=== PATIENT | female | born 1945 | race Caucasian/White ===

== ENCOUNTER 2017-10-07 13:05 | Observation (INO) | payer MEDICARE, OTHER ==
[~2017-10-07] VITALS: Ht 152.4 cm; Wt 68.7 kg
[2017-10-07] VITALS (8 sets, daily range): BP systolic 134–171; BP diastolic 51–90; PULSE 71–88; TEMP 96.8–98.3
[~2017-10-07 13:05] MED LIST: CALCIUM1 CAP PO; CARDI-OMEGA1000 MG PO; COMBIRESP IH; FLEXERIL 1010 MG/TAB PO; GLUCOSAMINE PO; PREMARIN 0.60.625 M1 PO; PRESERVISION1 SGL PO; RT ADVAIR 228 DISKUS IH; ULTRAM 50MG TAB50 MG PO; VENTOLIN0.09 MG IH; VITAMIN C500 MG PO
[2017-10-07] MEDS ORDERED: PROAIR HFA0.09 MG/AC IH (13:24)
[2017-10-07] MEDS ORDERED: MEVACOR10 MG PO (13:25)
[2017-10-07] MEDS ORDERED: HYDRODIURIL50 MG PO (13:26)
[2017-10-07] MEDS ORDERED: KLOR-CON M2020 MEQ PO (13:27)
[2017-10-07] MEDS ORDERED: NEURONTIN100 MG/CAP PO (13:27)
[2017-10-07] MEDS ORDERED: NEXIUM 24HR20 M1 PO (13:28)
[2017-10-07 19:51] LABS: CALCIUM 9.4 mg/dL (8.4-10.2); CREATININE, serum 0.59 mg/dL (0.52-1.25); POTASSIUM 3.4 mmol/L (3.4-5.0)
[2017-10-07 20:02] LABS: BASO # 0.1 (0.0-0.2); BASO % 0.9 % (0.0-2.0); EOS # 0.4 (0.0-0.7); EOS % 5.4 % (0-4.0); GRAN % 52.8 % (42.2-75.2); HEMOGLOBIN 10.8 g/dl (12.5-16.0); LYMPH # 2.4 (1.2-3.4); LYMPH % 31.8 % (20.0-51.0); MEAN CELL VOLUME 90 fl (80.0-100.0); MEAN CORPUSCULAR HEMOGLOBIN 30 pg (27.0-31.0); MEAN CORPUSCULAR HGB CONC 33 g/dl (33.0-37.0); MEAN PLATELET VOLUME 9.1 fl (7.4-10.4); MONO # 0.7 (0.1-0.6); MONO % 8.8 % (1.7-9.3); PLATELET COUNT 364 K/mm3 (130-400); RED BLOOD COUNT 3.59 M/mm3 (4.10-5.30); REDCELL DISTRIBUTION WIDTH-CV 14.1 % (11.5-14.5)
[2017-10-07 20:04] LABS: HEMATOCRIT 32.3 % (37.0-47.0)
[2017-10-08 03:09] VITALS: BP 127/58; PULSE 90; TEMP 98.4
[2017-10-08 07:14] LABS: BASO # 0.1 (0.0-0.2); BASO % 1.1 % (0.0-2.0); EOS # 0.4 (0.0-0.7); GRAN # 3.5 (1.4-6.5); GRAN % 55.1 % (42.2-75.2); HEMOGLOBIN 10.8 g/dl (12.5-16.0); LYMPH # 1.8 (1.2-3.4); MEAN CELL VOLUME 89 fl (80.0-100.0); MEAN CORPUSCULAR HEMOGLOBIN 30 pg (27.0-31.0); MEAN CORPUSCULAR HGB CONC 34 g/dl (33.0-37.0); MONO # 0.6 (0.1-0.6); MONO % 9.5 % (1.7-9.3); PLATELET COUNT 360 K/mm3 (130-400); RED BLOOD COUNT 3.56 M/mm3 (4.10-5.30)
[2017-10-08 07:16] LABS: HEMATOCRIT 31.5 % (37.0-47.0)
[2017-10-08 07:26] LABS: CALCIUM 9.4 mg/dL (8.4-10.2); CREATININE, serum 0.66 mg/dL (0.52-1.25); POTASSIUM 3.6 mmol/L (3.4-5.0)
[2017-10-08 09:30] VITALS: BP 139/62; PULSE 94; TEMP 98
== END 2017-10-08 13:00 | disposition home or self-care (01) ==
LOC: SDCO 13:05 → SURG 17:30
PROVIDERS: Hospitalist
DX: D12.3 Benign neoplasm of transverse colon (principal); K21.9 Gastro-esophageal reflux disease without esophagitis; K59.00 Constipation, unspecified; I10 Essential (primary) hypertension; E78.5 Hyperlipidemia, unspecified; J45.909 Unspecified asthma, uncomplicated; Z79.899 Other long term (current) drug therapy; Z87.891 Personal history of nicotine dependence; Z86.010 Personal history of colon polyps; Z83.79 Family history of other diseases of the digestive system
CPT/HCPCS: G0378; J2405; J2704; J7030

== ENCOUNTER 2018-11-18 13:05 | Day surgery (SDC) | payer MEDICARE, OTHER ==
[~2018-11-18] VITALS: Ht 152.4 cm; Wt 69.0 kg
[~2018-11-18 13:05] MED LIST changes: +HYDRODIURIL50 MG PO; +KLOR-CON M2020 MEQ PO; +MEVACOR10 MG PO; +NEURONTIN100 MG/CAP PO; +NEXIUM 24HR20 M1 PO; +PROAIR HFA0.09 MG/AC IH
[2018-11-18 13:26] VITALS: BP 143/73; PULSE 72; TEMP 97.7
[2018-11-18] MEDS ORDERED: TOPROL XL 50MG50 MG PO (13:33)
[2018-11-18] MEDS ORDERED: ADVIL200 MG PO (13:34)
[2018-11-18] MEDS ORDERED: MOTRIN 200200 MG/TAB PO (13:35)
[2018-11-18] MEDS ORDERED: ASPIRIN 81M81 MG/TA2 PO (13:35)
[2018-11-18] MEDS ORDERED: MULTI VITAMINS1 TAB PO (13:36)
[2018-11-18] MEDS ORDERED: FLEXERIL 1010 MG/TAB PO (13:37)
[2018-11-18] MEDS ORDERED: ROBAXIN 75750 MG/TAB PO (13:38)
[2018-11-18 15:35] VITALS: BP 151/76; PULSE 100; TEMP 97.3
[2018-11-18 15:50] VITALS: BP 156/82; PULSE 76
[2018-11-18 16:05] VITALS: BP 132/64; PULSE 75
--- NOTE | 2018-11-18 16:15 | NUR ---
Pt returned to [facility] at 1535. Ambulated with SBA to recliner in bay. Legs elevated, warm blanket given and call light in reach. VSS-see flowsheet. Tolerated muffin and tea. Denied complaints. IV removed, pressure dressing applied. Discharge teaching completed, pt and verbalized understanding. Pt dressed and taken via wheelchair to private vehicle for dc home with driving.
== END 2018-11-18 16:15 | disposition home or self-care (01) ==
LOC: SDCO 13:05
DX: Z12.11 Encounter for screening for malignant neoplasm of colon (principal); Z86.010 Personal history of colon polyps; C18.5 Malignant neoplasm of splenic flexure; D12.3 Benign neoplasm of transverse colon; Z79.899 Other long term (current) drug therapy; E78.00 Pure hypercholesterolemia, unspecified; J45.909 Unspecified asthma, uncomplicated; R12 Heartburn; I10 Essential (primary) hypertension; Z90.710 Acquired absence of both cervix and uterus; Z87.891 Personal history of nicotine dependence; Z96.60 Presence of unspecified orthopedic joint implant; K59.00 Constipation, unspecified; Z85.828 Personal history of other malignant neoplasm of skin
CPT/HCPCS: J2704; J7030

== ENCOUNTER 2018-12-02 16:22 | Inpatient (IN) | payer MEDICARE, OTHER ==
[~2018-12-02] VITALS: Ht 152.4 cm; Wt 70.0 kg
[~2018-12-02 16:22] MED LIST changes: +ADVIL200 MG PO; +ASPIRIN 81M81 MG/TA2 PO; +MOTRIN 200200 MG/TAB PO; +MULTI VITAMINS1 TAB PO; +ROBAXIN 75750 MG/TAB PO; +TOPROL XL 50MG50 MG PO
[2018-12-14] VITALS (11 sets, daily range): BP systolic 103–140; BP diastolic 46–73; PULSE 70–107; TEMP 97.8–97.9
--- NOTE | 2018-12-14 18:35 | NUR ---
Patient has done well throughout the day, sitting up in recliner for supper. x1 assist with steady gait. Incision sites x5 with edges well approximated. Requested pain medication once during shift and has denied pain since. Tolerating liquids without difficulty. Denies further needs at this time.
--- NOTE | 2018-12-14 21:00 | NUR ---
Patient ambulates around the surgical unit with supervision, gait steady. Has voided x2 without problem. IV site to left wrist, SL'd, patient taking oral fluids well. On scheduled pain management.
[2018-12-15] VITALS (7 sets, daily range): BP systolic 103–122; BP diastolic 42–67; PULSE 77–109; TEMP 97.5–98.9
--- NOTE | 2018-12-15 05:45 | NUR ---
Patient awake, takes AM Protonix and dose of ES Tylenol for abdominal discomfort. Voids 800cc of dark yellow urine at this time.
[2018-12-15 07:08] LABS: HEMOGLOBIN 10.9 g/dl (12.5-16.0)
[2018-12-15 07:17] LABS: HEMATOCRIT 31.6 % (37.0-47.0)
[2018-12-15 07:32] LABS: CREATININE, serum 0.82 (0.52-1.25); MAGNESIUM 1.8 mg/dL (1.6-2.3); PHOSPHOROUS 2.5 mg/dL (2.5-4.5); POTASSIUM 3.5 mmol/L (3.4-5.0)
--- NOTE | 2018-12-15 08:00 | NUR ---
UPON ENTRY TO THE ROOM THE PATIENT IS SITTING UP IN BED. PATIENT IS A&OX4. VSS. BOWEL SOUNDS HYPOACTIVE ALL FOUR QUADRANTS. ABDOMEN IS DISTENDED BUT SOFT UPON PALPATION. ABDOMINAL LAP SITES X5 CLINICAL DATA MANAGER WITH EDGES WELL APPROXIMATED. PATIENT TOLERATING DIET WITHOUT ANY COMPLAINTS OF N/V. PATIENT STATES THAT HER HANDS ARE SWOLLEN TODAY. POSITIVE PEDAL PULSES EQUAL BILATERALLY. LEF WRIST TO INT. CALL LIGHT WITHIN REACH. PATIENT DENIES ANY NEEDS AT THIS TIME.
--- NOTE | 2018-12-15 09:19 | NUR ---
Metoprolol and HCTZ held per primary nurse, DELLA Sal due to low blood pressure.
--- NOTE | 2018-12-15 10:12 | NUR ---
Initial viist; Patient thanked District Fire Chief for looking in on her, offering God's blessings and to keep her in District Fire Chief's prayers.
--- NOTE | 2018-12-15 10:37 | NUR ---
TWIN met with the patient to discuss a discharge plan. The patient lives in [place] with her Rakesh. The patient has a cane a walker but does not use them and reports independence with ADLs. The patient's PCP is Dr. Leal and patient receives medication from [facility] in with no difficulties. The patient does not have advanced directives in the EMR and was not interested in a DPOA-HC form. The patient plans to return home upon discharge with Rakesh providing transportation. There are no additional needs at this time.
--- NOTE | 2018-12-15 10:51 | NUR ---
Blood pressure recheck 115/54, pulse 113. Metoprolol given
--- NOTE | 2018-12-15 13:39 | NUR ---
Medicated with Tramadol for right abdominal pain of 6 on a scale of 0-10. Patient resting in bed at this time. Report given to primary nurse, DELLA Sal.
--- NOTE | 2018-12-15 15:20 | NUR ---
PATIENT AMBULATED >200 FE[address] IN HALLWAY WITH THIS NURSE. PATIENTS GAIT STEADY. PATIENT TOLERATED WELL. PATIENT ASSISTED BACK TO BED. PATIENT DENIES ANY NEEDS AT THIS TIME.
--- NOTE | 2018-12-15 19:20 | NUR ---
REPORT GIVEN TO DELLA MARTIN.
--- NOTE | 2018-12-15 20:37 | NUR ---
Patient takes HS meds including Tramadol 100mg po per her request for pain 5/10. Is alert and oriented x4. SL to left wrist without redness or swelling. Abdomen with 5 robotic sites, glued and mildly bruised. Up independently in room.
--- NOTE | 2018-12-16 01:30 | NUR ---
Patient sleeping, ES Tylenol held at this time.
[2018-12-16 04:00] VITALS: BP 110/48; PULSE 99; TEMP 97.7
--- NOTE | 2018-12-16 06:00 | NUR ---
Medicated with AM meds and Tramadol for rt abdominal pain 07/01. No stools this shift.
[2018-12-16 06:59] VITALS: BP 109/68; PULSE 70; TEMP 97.5
[2018-12-16 07:13] LABS: HEMOGLOBIN 10.5 g/dl (12.5-16.0)
[2018-12-16 07:25] LABS: HEMATOCRIT 31.1 % (37.0-47.0)
[2018-12-16 12:00] VITALS: BP 137/53; PULSE 87; TEMP 97.5
--- NOTE | 2018-12-16 13:39 | NUR ---
Patient resting in bed at this time. Cold pack given for right abdominal discomfort. Report given to primary nurse, DELLA Zepeda.
[2018-12-16 15:28] VITALS: BP 103/74; PULSE 73; TEMP 98
--- NOTE | 2018-12-16 18:30 | NUR ---
Patient has been doing well today. Paing has been better this afternoon. She has been moving around her room without problems. Encouraged her to walk in the hallways more. She is tolerating diet well. She is planning to discharge tomorrow. No other changes at this time. Call light within reach.
--- NOTE | 2018-12-16 20:00 | NUR ---
Report received. Assumed care for night clerk auditor. Assessment complete. VS stable. Denies nausea/shortness of breath. States she has passed some flatus earlier today and has been belching this evening. Did have a bowel movement on day shift. Tolerating PO. Voiding without difficulty. Robotic lap sites x5-edges well approximated-no drainage noted-bruising present. Rating pain 3/10-right upper quadrant-described as ache. Denies need for pain medication-scheduled tylenol given. Encouraged IS use and ambulation. Has been up in room today. Denies needs. Call light in reach. Bed in low position wheels locked. Will monitor.
[2018-12-16 20:37] VITALS: BP 101/68; PULSE 89; TEMP 97.9
--- NOTE | 2018-12-16 20:45 | NUR ---
Called to nurses station due to increased pain level. Rating pain 6/10-right upper/lower quadrant described as throbbing. Tramadol 100mg given per dr order. Will monitor.
[2018-12-17 00:10] VITALS: BP 122/54; PULSE 72; TEMP 98
[2018-12-17 04:04] VITALS: BP 124/53; PULSE 71; TEMP 97.7
[2018-12-17 07:49] VITALS: BP 132/68; PULSE 68; TEMP 98.5
[2018-12-17] MEDS ORDERED: ULTRAM 50MG TAB50 MG PO (10:57)
[2018-12-17 11:53] VITALS: BP 121/55; PULSE 77; TEMP 98
--- NOTE | 2018-12-17 13:15 | NUR ---
Patient is discharging home. Discharge instructions discussed with patient. NO questions verbalized. INT discontinued. She knows she has to call for a follow up appointment on Wednesday. Copies of discharge instructions sent with patient. She know she has a script for tramadol to get filled at the pharmacy. All belongings packed up and sent with patient. Patient walked out via wheel chair by Ingrid MARTINEZ.
== END 2018-12-17 13:15 | disposition home or self-care (01) | DRG 331 ==
LOC: INPTSU 12-14 05:41 → SURG 12-14 07:30
PROVIDERS: Student in an Organized Health Care Education/Training Program; ADMIT Surgery
PROC: 0DBM4ZZ Excision of Descending Colon, Percutaneous Endoscopic Approach (ICD-10-PCS; principal; 2018-12-14 07:30)
PROC: 0UT14ZZ Resection of Left Ovary, Percutaneous Endoscopic Approach (ICD-10-PCS; 2018-12-14 07:30)
DX: C18.6 Malignant neoplasm of descending colon (principal); J45.909 Unspecified asthma, uncomplicated; I10 Essential (primary) hypertension; E78.00 Pure hypercholesterolemia, unspecified; N83.202 Unspecified ovarian cyst, left side; D64.9 Anemia, unspecified
CPT/HCPCS: A4314; A9284; J0690; J1100; J1650; J1885; J2250; J2405; J2704; J3010; J7120

== ENCOUNTER 2019-01-12 09:13 | Day surgery (SDC) | payer MEDICARE, OTHER ==
[~2019-01-12] VITALS: Ht 152.4 cm; Wt 69.8 kg
[2019-01-12 10:01] VITALS: BP 119/68; PULSE 78; TEMP 98
[2019-01-12 12:00] VITALS: BP 135/69; PULSE 99; TEMP 97.8
--- NOTE | 2019-01-12 12:00 | NUR ---
Patient arrives to [facility] via cart, accompanied by HEALTHCARE ACCOUNT MANAGER Julian and ALVARO Faulkner. Patient is drowsy, but easily aroused to voice and oriented. Bedside report received. COLLECTION ADVISOR reports that patient's HR has been tachycardic and himself and Dr. Chung are aware and OK with that. Monitoring applied - VSS and WNL on room air. Patient denies pain or nausea. Her surgical site is clean, dry, intact. Call light in reach. Will continue to monitor.
[2019-01-12 12:15] VITALS: BP 121/61; PULSE 90
--- NOTE | 2019-01-12 12:15 | NUR ---
Patient is resting comfortably in room. Operative site remains clean, dry, intact. She denies pain or nausea. Offered and receives juice and a muffin to eat. Called and left a voicemail with her that patient is done with surgery and recovering. VSS and WNL on room air.
[2019-01-12 12:30] VITALS: BP 108/75; PULSE 75
[2019-01-12 12:45] VITALS: BP 118/60; PULSE 91
--- NOTE | 2019-01-12 12:45 | NUR ---
Patient tolerating PO well. Denies pain, nausea, or need.
[2019-01-12 13:00] VITALS: BP 121/56; PULSE 99
--- NOTE | 2019-01-12 13:00 | NUR ---
VSS and WNL on room air. Denies pain or nausea. Patient has met discharge criteria. Waiting on spouse to return for ride home.
--- NOTE | 2019-01-12 13:25 | NUR ---
Patient's has returned for discharge. Discharge instructions discussed, denies any questions, and verbalizes understanding. PIV removed with catheter intact and hemostasis achieved. Changing to clothing independently.
--- NOTE | 2019-01-12 13:49 | NUR ---
Patient escorted to exit via wheelchair. Discharged to home with ride in private vehicle at 1349.
== END 2019-01-12 13:49 | disposition home or self-care (01) ==
LOC: SDCO 09:13
DX: C18.6 Malignant neoplasm of descending colon (principal); J45.909 Unspecified asthma, uncomplicated; E78.00 Pure hypercholesterolemia, unspecified; I10 Essential (primary) hypertension; K21.9 Gastro-esophageal reflux disease without esophagitis; Z90.49 Acquired absence of other specified parts of digestive tract; Z79.82 Long term (current) use of aspirin; Z90.710 Acquired absence of both cervix and uterus; Z80.3 Family history of malignant neoplasm of breast; Z83.79 Family history of other diseases of the digestive system; Z87.891 Personal history of nicotine dependence
CPT/HCPCS: C1788; J0690; J1644; J2405; J2704; J3010; J7120; Q9967

== ENCOUNTER 2021-06-06 15:01 | Inpatient (IN) | payer MEDICARE, OTHER ==
[~2021-06-06] VITALS: Ht 152.4 cm; Wt 81.1 kg
[~2021-06-06 15:01] MED LIST changes: +ONE-A-DAY ESSE1 EACH PO; +PRINZIDE 12.5 M1 TAB PO; +RITALIN 5MG5 MG/TAB PO; +RT ADVAIR 128 DISKUS IH
[2021-06-06 15:37] LABS: HEMOGLOBIN 10.8 g/dl (12.5-16.0); MEAN CELL VOLUME 95 fl (80.0-100.0); MEAN CORPUSCULAR HEMOGLOBIN 34 pg (27-31); MEAN CORPUSCULAR HGB CONC 35 g/dl (33.0-37.0); MEAN PLATELET VOLUME 10.4 fl (7.4-10.4); PLATELET COUNT 118 K/mm3 (130-400); RED BLOOD COUNT 3.22 M/mm3 (4.10-5.30); REDCELL DISTRIBUTION WIDTH-CV 12.7 % (11.5-14.5)
[2021-06-06 15:41] LABS: HEMATOCRIT 30.7 % (37.0-47.0)
[2021-06-06 15:57] LABS: ALBUMIN 3.4 gm/dL (3.4-4.8); BILIRUBIN,TOTAL 0.3 mg/dL (0.2-1.2); C-REACTIVE PROTEIN 28.24 mg/dL (0.00-0.50); CREATININE, serum 1.73 mg/dL (0.57-1.11); POTASSIUM 4.3 mmol/L (3.5-4.5); TOTAL PROTEIN 6.7 gm/dL (6.2-8.1)
[2021-06-06 16:02] LABS: COLLECTION METHOD CLEAN CATCH
[2021-06-06 16:03] LABS: BAND 4 % (0-10); LYMPHOCYTE 6 % (20.0-51.0); NEUTROPHILS 79 % (42.0-75.2)
[2021-06-06 16:04] LABS: PLATELET ESTIMATE DECREASED (NORMAL)
[2021-06-06] MEDS ORDERED: LANOXIN 0.120.125 MG PO (16:08)
[2021-06-06] MEDS ORDERED: CARDIZEM 30MG T30 MG PO (16:09)
[2021-06-06 16:34] LABS: BUDDING YEAST Present (NOT PRESENT); MUCOUS Present (NOT PRESENT); PH 5 (5-8); SQUAMOUS EPITHELIAL 0-2 /hpf (0-10); URINE APPEARANCE Cloudy (CLEAR/HAZY); URINE BACTERIA Rare /hpf (NONE SEEN); URINE BILIRUBIN Negative (NEGATIVE); URINE BLOOD Negative (NEGATIVE); URINE COLOR Yellow (YELLOW); URINE GLUCOSE Negative (NEGATIVE); URINE KETONE Negative (NEGATIVE); URINE LEUKOCYTE ESTERASE 3+ (NEGATIVE); URINE NITRATE Positive (NEGATIVE); URINE PROTEIN(semi-quant) 2+ (NEGATIVE); URINE UROBILINOGEN Negative (NEGATIVE)
[2021-06-06 20:37] LABS: PARTIAL THROMBOPLASTIN TIME 28.9 SECONDS (26.0-37.0)
[2021-06-06 21:03] VITALS: BP 127/50; PULSE 93; TEMP 98.4
--- NOTE | 2021-06-06 23:55 | NUR ---
ADMIT TO FLOOR PER W/C W AFIB, RVR AND ABD PAIN. PT WAS SENT FROM PCP OFFICE W CONCERN OF GALLSTONES. PT DENIES CHEST PAIN YET IS DIZZY AT TIMES. SLIGHTLY CONFUSED UPON ADMIT. SPOUSE CALLED TO GIVE UPDATE ON POC. HEP GTT/BOLUS PER ORDER INITATED. HEP XA AT 0320. IV MAG, IV FLUIDS AND PM MEDS GIVEN. PT BED ALARM SET AND CALL LIGHT WI REACH. ASSESMENT OBTAINED. UNSURE OF MED LIST, RADHA AWARE. PT SPOUSE IS TO BRING UPDATED LIST THIS AM. VISITING HOURS REVIEWED W FELIX, SPOUSE.
[2021-06-07] VITALS (7 sets, daily range): BP systolic 117–145; BP diastolic 51–71; PULSE 72–109; TEMP 98–100
[2021-06-07 04:46] LABS: HEMOGLOBIN 10.6 g/dl (12.5-16.0); MEAN CORPUSCULAR HEMOGLOBIN 34 pg (27-31); MEAN CORPUSCULAR HGB CONC 34 g/dl (33.0-37.0); MEAN PLATELET VOLUME 10.4 fl (7.4-10.4); RED BLOOD COUNT 3.13 M/mm3 (4.10-5.30); REDCELL DISTRIBUTION WIDTH-CV 13.3 % (11.5-14.5)
[2021-06-07 04:49] LABS: HEMATOCRIT 31.4 % (37.0-47.0); MEAN CELL VOLUME 100 fl (80.0-100.0)
--- NOTE | 2021-06-07 04:49 | NUR ---
PT IS A VERY HARD STICK. WOOD HEEL BACK LINER UNABLE TO GET BLOOD. DR CORBETT STARTS LINE TO RT AC AND DRAWS LABS SENT FOR AM AND HEP XA. PT SEEMS MORE CONFUSED AT THIS TIME. BED ALARM ON.
[2021-06-07 04:50] LABS: PLATELET COUNT 288 K/mm3 (130-400)
[2021-06-07 04:54] LABS: CALCIUM 9.5 mg/dL (8.4-10.2); CREATININE, serum 1.71 mg/dL (0.57-1.11); POTASSIUM 4.4 mmol/L (3.5-4.5)
[2021-06-07 05:11] LABS: BAND 11 % (0-10); LYMPHOCYTE 7 % (20.0-51.0); NEUTROPHILS 79 % (42.0-75.2)
[2021-06-07 05:13] LABS: TOXIC GRANULATION PRESENT
--- NOTE | 2021-06-07 05:29 | NUR ---
HEP XA 0.42- NO CHANGE IN RATE. PT RUNNING FEVER, WILL GIVE TYL.
--- NOTE | 2021-06-07 15:29 | NUR ---
SW met with patient to complete intake. Patient states that she lives in [facility] with her Rakesh [phone]. Patient states that she does not utilize any DME and is independent with ADL's patient provides that she does not utilize any home health services. PCP is Dr. Farfan, and pharmacy is [facility]. Patient states that her daughter Hilda is a contact as well [phone]. Patient states that she does not have a DPOA/HC. Patient states that she plans to return to her home upon DC. SW will continue to follow. DC plan: home
--- NOTE | 2021-06-07 20:41 | NUR ---
PT REMAINS IN AFIB - DENIES SOA, CHEST PAIN OR DIZZY. IS VERY [place] BUT MUCH MORE ORIENTATED TONIGHT. HEPARIN GTT REMAINS AT 11.5ML/HR. NS AT 100ML/HR. PM MEDS GIVEN. IS THERAPUTIC W HEP XA, LAB IN AM. CALL LIGHT WI REACH.
[2021-06-08 00:04] VITALS: BP 128/66; PULSE 80; TEMP 99.6
[2021-06-08 04:34] VITALS: BP 153/74; PULSE 111; TEMP 101.3
[2021-06-08 07:16] LABS: MEAN CELL VOLUME 97 fl (80.0-100.0); MEAN CORPUSCULAR HGB CONC 34 g/dl (33.0-37.0); MEAN PLATELET VOLUME 10.6 fl (7.4-10.4); PLATELET COUNT 239 K/mm3 (130-400); RED BLOOD COUNT 2.73 M/mm3 (4.10-5.30); REDCELL DISTRIBUTION WIDTH-CV 13.3 % (11.5-14.5)
[2021-06-08 07:22] LABS: HEMATOCRIT 26.5 % (37.0-47.0); MEAN CORPUSCULAR HEMOGLOBIN 33 pg (27-31)
[2021-06-08 07:23] VITALS: BP 126/64; PULSE 64; TEMP 98.4
[2021-06-08 07:43] LABS: CALCIUM 9.1 mg/dL (8.4-10.2); CREATININE, serum 1.45 mg/dL (0.57-1.11); POTASSIUM 3.2 mmol/L (3.5-4.5)
[2021-06-08 08:34] LABS: BAND 8 % (0-10); LYMPHOCYTE 9 % (20.0-51.0); NEUTROPHILS 76 % (42.0-75.2); PLATELET ESTIMATE NORMAL (NORMAL)
[2021-06-08 11:25] VITALS: BP 113/61; PULSE 99; TEMP 98.5
[2021-06-08 15:19] VITALS: BP 107/54; PULSE 102; TEMP 98.7
--- NOTE | 2021-06-08 18:04 | NUR ---
PATIENT REPORTED A HEADACHE TODAY. NEW ORDER FOR NORCO. PATIENT REPORTED HEADACHE RELIEF. HEPARIN DRIP INFUSING, NEXT HEP XA ORDERED. NO OTHER ISSUES NOTED OR REPORTED.
--- NOTE | 2021-06-08 20:02 | NUR ---
HEPARIN GTT RUNNING AT 13.5 ML/HR. NEXT HEP XA- 2130. PT DENIES CHEST PAIN , DIZZY OR LIGHTHEADED. SANCHEZ RESOLVED BY NORCO. PM MEDS GIVEN. POC DISCUSSED. CALL LIGHT WI REACH. NEEDS MET.
[2021-06-08 20:18] VITALS: BP 131/67; PULSE 101; TEMP 98.7
[2021-06-09] VITALS (8 sets, daily range): BP systolic 112–146; BP diastolic 57–81; PULSE 86–117; TEMP 98.1–100.1
[2021-06-09 03:26] LABS: BASO # 0.1 K/mm3 (0.0-0.2); BASO % 0.6 % (0.0-2.0); EOS # 0.1 K/mm3 (0.0-0.7); EOS % 1.3 % (0.0-4.0); LYMPH # 1.6 K/mm3 (1.2-3.4); LYMPH % 14.9 % (20.0-51.0); MEAN CELL VOLUME 96 fl (80.0-100.0); MEAN CORPUSCULAR HGB CONC 36 g/dl (33.0-37.0); MEAN PLATELET VOLUME 10.2 fl (7.4-10.4); MONO # 1.1 K/mm3 (0.1-0.6); MONO % 9.6 % (1.7-9.3); PLATELET COUNT 244 K/mm3 (130-400); REDCELL DISTRIBUTION WIDTH-CV 13.6 % (11.5-14.5)
[2021-06-09 03:29] LABS: HEMATOCRIT 25.9 % (37.0-47.0); HEMOGLOBIN 9.2 g/dl (12.5-16.0); MEAN CORPUSCULAR HEMOGLOBIN 34 pg (27-31)
--- NOTE | 2021-06-09 03:45 | NUR ---
HEP XA 0.30- INCREASED PER PROTOCOL RATE NOW 14.5ML/HR. VERIFIED BY DELLA TYLER.
[2021-06-09 04:03] LABS: ALBUMIN 2.3 gm/dL (3.4-4.8); CALCIUM 9.7 mg/dL (8.4-10.2); CREATININE, serum 1.38 mg/dL (0.57-1.11); MAGNESIUM 1.9 mg/dL (1.6-2.6); PHOSPHOROUS 3.2 mg/dL (2.3-4.7); POTASSIUM 3.7 mmol/L (3.5-4.5)
--- NOTE | 2021-06-09 04:21 | NUR ---
REPORT CRITICAL CARBON DIOXIDE OF 13 TO NICHOLAS GARCIA. SHE WILL LOOK AT AM LABS.
--- NOTE | 2021-06-09 05:23 | NUR ---
AUDIABLE WHEEZING WHEN UP TO BR. PT IS DRINKING ALOT OF FLUIDS. RADHA CALLED AND WILL DC FLUIDS.
--- NOTE | 2021-06-09 10:01 | NUR ---
Initial visit; Patient thanked Dramatic Teacher for looking in on her and offering God's blessings and keeping her in Dramatic Teacher's prayers.
--- NOTE | 2021-06-09 10:41 | NUR ---
Patient sitting on edge of bed upon entering the room. appeared SOB, this RN asked how the patient felt and she stated more short of breath than normal. O2 sats were 88% on RA. Patient placed on 2L of O2 via NC. Dr. Rice and Arabella PETERSON, notified of patients new need for O2. Also notified that patient's HR was remaining in the 120s-130s while resting. Morning medications administered as ordered. Patient instructed to call whenever she needs to use the restroom, and that bedside commode would be used since patient was SOB and tachycardic. Hep XA drawn at 0930, came back and needed to be increased 100 units per protocol. Changes made w/ Zuleima - RN.
--- NOTE | 2021-06-09 13:15 | NUR ---
Patient experiencing hallucinations as reported by daughter. This RN went to assess, patient stated she saw a man w/ red hair standing at the door. When asked orientation questions, patient stated location and name correctly, but stated the year was 1974. Patient remains SOB and tachycardic. Cardiology and hospitalist aware. Hospitalist notified of hallucinations. Ordered 25mg seroquel to be given.
[2021-06-10 04:37] VITALS: BP 115/71; PULSE 84; TEMP 97.5
--- NOTE | 2021-06-10 05:28 | NUR ---
PATIENT CALM AND COOPERATIVE THROUGHOUT THE NIGHT. NO NEW ISSUES NOTED OR REPORTED BY PATIENT. PRN TYLENOL ADMINISTERED X'S 1 FOR PATIENT REPORTING A HEADACHE. PATIENT REPORTED PAIN RELIEF.
[2021-06-10 06:21] LABS: MEAN CELL VOLUME 96 fl (80.0-100.0); MEAN CORPUSCULAR HGB CONC 34 g/dl (33.0-37.0); MEAN PLATELET VOLUME 10.5 fl (7.4-10.4); PLATELET COUNT 247 K/mm3 (130-400); RED BLOOD COUNT 2.53 M/mm3 (4.10-5.30); REDCELL DISTRIBUTION WIDTH-CV 13.7 % (11.5-14.5)
[2021-06-10 06:22] LABS: HEMATOCRIT 24.4 % (37.0-47.0); HEMOGLOBIN 8.3 g/dl (12.5-16.0); MEAN CORPUSCULAR HEMOGLOBIN 33 pg (27-31)
[2021-06-10 06:40] LABS: CALCIUM 9.8 mg/dL (8.4-10.2); CREATININE, serum 1.16 mg/dL (0.57-1.11); MAGNESIUM 1.8 mg/dL (1.6-2.6); PHOSPHOROUS 3.9 mg/dL (2.3-4.7); POTASSIUM 3.6 mmol/L (3.5-4.5)
[2021-06-10 07:01] LABS: BAND 7 % (0-10); BASOPHIL 2 % (0-2); EOSINOPHIL 2 % (0-4); LYMPHOCYTE 18 % (20.0-51.0); NEUTROPHILS 62 % (42.0-75.2)
[2021-06-10 07:02] LABS: PLATELET ESTIMATE NORMAL (NORMAL)
[2021-06-10 07:03] LABS: TARGET CELLS 1+
[2021-06-10 08:54] VITALS: BP 120/64; PULSE 70; TEMP 98
--- NOTE | 2021-06-10 09:34 | NUR ---
Patient receiving a breathing treatment upon entering the room. Patient denies any concerns this morning. Patient appears to be doing better than yesterday, not SOB.
[2021-06-10 12:05] VITALS: BP 118/60; PULSE 74; TEMP 97.8
[2021-06-10 16:00] VITALS: BP 115/65; PULSE 78; TEMP 97.8
--- NOTE | 2021-06-10 16:32 | NUR ---
Patient walked w/ PT today and did well. Family at bedside and update was given. Patient continues to deny any concerns.
--- NOTE | 2021-06-10 18:01 | NUR ---
Patient stated that she felt bloated and hasn't had a BM in 3days. [place] called, santo requested, order placed by [place].
[2021-06-10 20:53] VITALS: BP 156/61; PULSE 94; TEMP 99.4
[2021-06-11 00:23] VITALS: BP 132/60; PULSE 78; TEMP 98.6
[2021-06-11 05:07] VITALS: BP 142/69; PULSE 81; TEMP 98.2
--- NOTE | 2021-06-11 05:49 | NUR ---
ASSESSMENT COMPLETE FOR THIS SHIFT. PT RESTING IN BED. PT COMPLAINED OF KNEE PAIN AND HAD A LOW GRADE FEVER. PT GIVEN NORCO FOR KNEE PAIN AND LOW GRADE FEVER. NORCO WAS EFFECTIVE FOR REDUCING PAIN AND FEVER. PT DENIED SOB, N,V,D OR DIZZINESS. PHOEBE FISHMAN REPORTED PT HAD SEVERAL EPISODES OF HER HR GOING INTO THE 130s TO 140s. HOSPITALIST CALLED. CARDIZEM ORDERED AND GIVEN; EKG ORDERED AND DONE. CARDIZEM SEEMED TO HELP MANAGE PT'S HR. PT EXPRESSED NO OTHER NEEDS AT THIS TIME. CALL LIGHT WITHIN REACH.
[2021-06-11 06:54] LABS: MEAN CELL VOLUME 96 fl (80.0-100.0); MEAN CORPUSCULAR HGB CONC 35 g/dl (33.0-37.0); MEAN PLATELET VOLUME 10.5 fl (7.4-10.4); PLATELET COUNT 318 K/mm3 (130-400); RED BLOOD COUNT 2.68 M/mm3 (4.10-5.30); REDCELL DISTRIBUTION WIDTH-CV 13.8 % (11.5-14.5)
[2021-06-11 06:57] LABS: HEMATOCRIT 25.6 % (37.0-47.0); MEAN CORPUSCULAR HEMOGLOBIN 34 pg (27-31)
[2021-06-11 07:11] LABS: ALBUMIN 2.2 gm/dL (3.4-4.8); CREATININE, serum 1.01 mg/dL (0.57-1.11); MAGNESIUM 1.9 mg/dL (1.6-2.6); PHOSPHOROUS 3.9 mg/dL (2.3-4.7); POTASSIUM 4.1 mmol/L (3.5-4.5)
[2021-06-11 07:30] LABS: BAND 2 % (0-10); EOSINOPHIL 6 % (0-4); LYMPHOCYTE 39 % (20.0-51.0); NEUTROPHILS 41 % (42.0-75.2); PLATELET ESTIMATE NORMAL (NORMAL)
[2021-06-11 07:31] LABS: TARGET CELLS 1+
[2021-06-11 08:10] VITALS: BP 137/81; PULSE 70; TEMP 97.8
--- NOTE | 2021-06-11 08:30 | NUR ---
Assessment completed, alert/oriented, heart remains irregular/ tachy 120's and notifed hospitalist, other vital signs stable, denies any pain or discomfort, denies any reps.difficulty or chest discomfort, morning meds given and will continue to monitor heaert rate/rythm, she is sitting up eating breakfast and denies other needs at this time
[2021-06-11] MEDS ORDERED: ELIQUIS 5MG PO (09:22)
--- NOTE | 2021-06-11 10:30 | NUR ---
distillery worker general met with patient to discuss going home with HH services. Patient's daughter Cherry present at bedside. Patient is presented with the [email or web address] list of angcies that service the [facility]. Patient chose [facility]. Patient presented with the [facility].. Education provided to the patient and patient verbalized her understanding. Patient verbalized her agreement with the discharge plan for today. Signed original placed in chart and copy provided back to the patient.
[2021-06-11 12:23] VITALS: BP 138/85; PULSE 89; TEMP 98.5
--- NOTE | 2021-06-11 13:38 | NUR ---
Social Work student faxed a home health referral to Ritika at [facility].
[2021-06-11 16:25] VITALS: BP 111/56; PULSE 105; TEMP 100.5
[2021-06-11 20:39] VITALS: BP 150/69; PULSE 68; TEMP 99.6
[2021-06-12] VITALS (11 sets, daily range): BP systolic 97–145; BP diastolic 55–92; PULSE 72–126; TEMP 92–98.9
--- NOTE | 2021-06-12 04:01 | NUR ---
ASSESSMENT COMPLETE FOR THIS SHIFT. PT RESTING IN BED WATCHING THE NEWS. PT COMPLAINED OF A HEADACHE AND HAD A LOW GRADE FEVER TONIGHT WELL. PT GIVEN TYLENOL FOR HEADACHE AND FEVER. TYLENOL EFFECTIVE FOR BOTH. PT DENIED SOB, N,V,D OR DIZZINESS. PT'S HR SEEMED TO BOUNCE FROM THE 80'S TO THE 120'S TONIGHT, EVEN HIGH THE 140'S FOR A SECOND, THEN JUMPS BACK DOWN INTO THE 90'S TO 100'S. HOWEVER, EVERY TIME I GO IN TO CHECK ON PT SHE'S SLEEPING AND SAYS SHE FEELS FINE. PT DID HAVE AN EPISODE OF SWEATING AT THE BEGINNING OF THE SHIFT WHERE WE NEEDED TO CHANGE HER BEDDING AND GOWN. THAT WAS RIGHT AROUND THE TIME PT HAD A LOW GRADE FEVER. PT HAS NOT COMPLAINED OF ANY MORE SWEATING EPISODES TONIGHT AND PT TEMPERATURE HAS BEEN IN THE NORMAL RANGE SINCE THEN. WILL CONTINUE TO MONITOR. PT EXPRESSED NO OTHER NEEDS AT THIS TIME. CALL LIGHT WITHIN REACH.
[2021-06-12 06:19] LABS: MEAN CELL VOLUME 98 fl (80.0-100.0); MEAN CORPUSCULAR HGB CONC 34 g/dl (33.0-37.0); MEAN PLATELET VOLUME 11.3 fl (7.4-10.4); PLATELET COUNT 348 K/mm3 (130-400); RED BLOOD COUNT 2.91 M/mm3 (4.10-5.30); REDCELL DISTRIBUTION WIDTH-CV 13.8 % (11.5-14.5)
[2021-06-12 06:30] LABS: HEMATOCRIT 28.6 % (37.0-47.0); HEMOGLOBIN 9.6 g/dl (12.5-16.0); MEAN CORPUSCULAR HEMOGLOBIN 33 pg (27-31)
[2021-06-12 06:39] LABS: ALBUMIN 2.3 gm/dL (3.4-4.8); CALCIUM 10.2 mg/dL (8.4-10.2); CREATININE, serum 0.98 mg/dL (0.57-1.11); MAGNESIUM 1.8 mg/dL (1.6-2.6); PHOSPHOROUS 4.3 mg/dL (2.3-4.7); POTASSIUM 4.3 mmol/L (3.5-4.5)
[2021-06-12 07:03] LABS: BAND 4 % (0-10); BASOPHIL 1 % (0-2); EOSINOPHIL 3 % (0-4); LYMPHOCYTE 27 % (20.0-51.0); METAMYELOCYTE 1 % (0-0); NEUTROPHILS 54 % (42.0-75.2); PLATELET ESTIMATE NORMAL (NORMAL)
[2021-06-12] MEDS ORDERED: CEFTIN500 MG PO (08:57)
[2021-06-12] MEDS ORDERED: CARDIZEM CD 18180 MG PO (08:58)
--- NOTE | 2021-06-12 10:00 | NUR ---
Student nurse's assessment reviewed and agree w/ documentation. Pt remains in Afib RVR per tele. Rate frequently 100-140s on monitor. Denies associated symptoms. Plan for ZAK/Cardioversion this afternoon.
--- NOTE | 2021-06-12 10:23 | NUR ---
The patient may be able to discharge later today. TWIN notified Ritika at [facility]. Ritika states that they are able to accept the patient for services. TWIN updated the patient and her daughter. The patient is to tentatively discharge later today, 06/12, with home health services for alf/PT/OT from [facility]. TWIN to fax orders to [facility], once finalized.
--- NOTE | 2021-06-12 14:35 | NUR ---
Pt off unit for ZAK/cardioversion at this time.
--- NOTE | 2021-06-12 18:38 | NUR ---
Unsuccessful cardioversion today. PO amio started per orders. Pt resting in bed w/o complaint.
--- NOTE | 2021-06-12 20:19 | NUR ---
Pt stated that txs amke her "watery and congested" and she doesn't liike taking them. She also stated that she is going home tomorrow and has inhalers at home that work well for her. I will discuss with to see how he would like us to proceed.
[2021-06-13 00:03] VITALS: BP 127/62; PULSE 56; TEMP 98.8
--- NOTE | 2021-06-13 03:52 | NUR ---
ASSESSMENT COMPLETE FOR THIS SHIFT. PT RESTING IN BED NAPPING. PT DENIED PAIN, SOB, N,V,D OR DIZZINESS. AROUND 0315ish HRS THIS MORNING, PT COMPLAINED OF FEELING LIKE SHE HAD A BURN ON HER CHEST. UPON EXAMINATION, IT APPEARED TO BE A BURN FROM THE PAD USED DURING HER CARDIOVERSION. I TOLD PT THAT IT DID LOOK LIKE SHE HAD A BURN FROM THE PAD. PT SAID "OH, OK," PUT A KLEENEX TISSUE OVER THE BURN, CLOSED HER EYES AND WENT BACK TO SLEEP. HOSPITALIST CALLED, TO SEE IF SOME HYDROCORTISONE CREAM COULD BE ORDERED SHOULD SHE NEED SOMETHING FOR HER BURN. HOSPITALIST SAID HE WOULD PUT SOMETHING IN FOR HER. PT CONTINUES WITH IRREGULAR HR, BUT ALSO REMAINS ASYMPTOMATIC. WILL CONTINUE TO MONITOR. PT EXPRESSED NO OTHER NEEDS AT THIS TIME. CALL LIGHT WITHIN REACH.
[2021-06-13 04:02] VITALS: BP 125/86; PULSE 96; TEMP 97.9
--- NOTE | 2021-06-13 06:20 | NUR ---
HYDROCORTISONE CREAM PLACED ON PT'S CHEST FOR BURN FROM CARDIOVERSION, PER PT REQUEST. PT THEN MENTIONED SHE THOUGHT SHE FELT A BURN ON HER BACK. PT'S BACK EXAMINED AND HYDROCORTISONE CREAM PLACED ON BURN TO PT'S BACK WELL.
[2021-06-13 06:35] LABS: MEAN CELL VOLUME 96 fl (80.0-100.0); MEAN CORPUSCULAR HGB CONC 34 g/dl (33.0-37.0); MEAN PLATELET VOLUME 10.3 fl (7.4-10.4); RED BLOOD COUNT 3.04 M/mm3 (4.10-5.30); REDCELL DISTRIBUTION WIDTH-CV 13.2 % (11.5-14.5)
[2021-06-13 06:38] LABS: HEMATOCRIT 29.3 % (37.0-47.0); HEMOGLOBIN 9.9 g/dl (12.5-16.0); MEAN CORPUSCULAR HEMOGLOBIN 33 pg (27-31); PLATELET COUNT 533 K/mm3 (130-400)
[2021-06-13 06:51] LABS: EOSINOPHIL 6 % (0-4); LYMPHOCYTE 20 % (20.0-51.0); NEUTROPHILS 65 % (42.0-75.2)
[2021-06-13 06:52] LABS: PLATELET ESTIMATE INCREASED (NORMAL)
[2021-06-13 06:53] LABS: HYPOCHROMIA 1+; STOMATOCYTE 1+
[2021-06-13 06:55] LABS: ALBUMIN 2.6 gm/dL (3.4-4.8); CALCIUM 10.5 mg/dL (8.4-10.2); CREATININE, serum 1.06 mg/dL (0.57-1.11); MAGNESIUM 1.7 mg/dL (1.6-2.6); PHOSPHOROUS 3.8 mg/dL (2.3-4.7); POTASSIUM 4.2 mmol/L (3.5-4.5)
[2021-06-13 08:07] VITALS: BP 143/92; BP 215/70; PULSE 124; PULSE 78; TEMP 98.2
--- NOTE | 2021-06-13 09:30 | NUR ---
PT PLEASANT, AOX4, DENIES PAIN, DENIES SOB, DIZZINESS OR LIGHT HEADEDNESS, PT ASSESSMENT PERFORMED, DENIES N/V/D, NO OTHER NEEDS
[2021-06-13] MEDS ORDERED: CORDARONE200 MG/TAB PO (10:12)
--- NOTE | 2021-06-13 11:09 | NUR ---
PT PLEASANT, DISCHARGE EDUCATION PROVIDED, PT WOULD LIKE IT REVIEWED WITH HER WELL WHEN HE ARRIVES. WILL PROVIDED DISCHARGE EDUCATION AGAIN WHEN ARRIVES IN APPROX 1HR.
--- NOTE | 2021-06-13 11:14 | NUR ---
Patients clinical updates a discharge orders faxed to Ritika at [facility]. Notifed Sandy of patients dc today
[2021-06-13 11:44] VITALS: BP 128/71; PULSE 127; TEMP 98.3
--- NOTE | 2021-06-13 12:33 | NUR ---
pt and daughter arrived at bedside, discharge education provided, iv removed, tele removed, pt escorted out via wheelchair with belongings and family. no other needs
== END 2021-06-13 12:34 | disposition home health service (06) | DRG 871 ==
LOC: COL.ER 15:01 → MEDICAL 18:34
PROVIDERS: Internal Medicine; Physician Assistant; Student in an Organized Health Care Education/Training Program; ADMIT Internal Medicine
PROC: 5A2204Z Restoration of Cardiac Rhythm, Single (ICD-10-PCS; principal; 2021-06-12)
PROC: B24BZZ4 Ultrasonography of Heart with Aorta, Transesophageal (ICD-10-PCS; 2021-06-12)
DX: A41.51 Sepsis due to Escherichia coli [E. coli] (principal); G93.41 Metabolic encephalopathy; N17.9 Acute kidney failure, unspecified; E87.2 Acidosis; N13.6 Pyonephrosis; I48.0 Paroxysmal atrial fibrillation; I10 Essential (primary) hypertension; E78.5 Hyperlipidemia, unspecified; E86.0 Dehydration; J45.909 Unspecified asthma, uncomplicated; K80.20 Calculus of gallbladder without cholecystitis without obstruction; E87.8 Other disorders of electrolyte and fluid balance, not elsewhere classified; Z85.038 Personal history of other malignant neoplasm of large intestine; Z87.891 Personal history of nicotine dependence; Z79.82 Long term (current) use of aspirin; Z23 Encounter for immunization
CPT/HCPCS: 99223-AI; 99232-AI; 99233-AI; 99239; J0696; J1644; J2270; J2405; J2704; J3475; J7030